=== PATIENT | female | born 2000 | race Caucasian/White ===

== ENCOUNTER 2023-02-20 18:30 | Emergency (ER) | payer SELFPAY ==
[~2023-02-20] VITALS: Ht 157.5 cm; Wt 73.8 kg
[2023-02-20 19:19] LABS: URINE WBC 0 /hpf (0-3)
[2023-02-20 19:32] LABS: URINE APPEARANCE CLEAR; URINE COLOR YELLOW
[2023-02-20 19:33] LABS: URINE BILIRUBIN NEGATIVE (NEGATIVE); URINE BLOOD NEGATIVE (NEGATIVE); URINE GLUCOSE NEGATIVE (NEGATIVE); URINE KETONE NEGATIVE (NEGATIVE); URINE LEUKOCYTE ESTERASE NEGATIVE (NEGATIVE); URINE MUCUS PRESENT (NOT PRESENT); URINE NITRATE NEGATIVE (NEGATIVE); URINE PROTEIN(semi-quant) TRACE (NEGATIVE); URINE UROBILINOGEN NORMAL (NORMAL)
[2023-02-20 19:36] LABS: BASO # 0.03 K/mm3 (0.02-0.10); EOS # 0.15 K/mm3 (0.04-0.40); EOS % 1.4 % (1.0-5.0); HEMATOCRIT 43.5 % (37.0-47.0); HEMOGLOBIN 14.6 g/dL (12.5-16.0); LYMPH# 1.92 K/mm3 (1.50-4.00); MEAN CELL VOLUME 94 fl (78-100); MEAN CORPUSCULAR HEMOGLOBIN 32 pg (27-31); MEAN CORPUSCULAR HGB CONC 34 g/dL (33-37); MEAN PLATELET VOLUME 10.8 fl (7.4-10.4); MONO # 0.71 K/mm3 (0.20-0.80); NEU # 7.65 K/mm3 (1.40-6.50); PLATELET COUNT 262 K/mm3 (130-400); RED BLOOD COUNT 4.62 M/mm3 (4.10-5.30); RED CELL DISTRIBUTION WIDTH 12.1 % (11.5-14.5); WHITE BLOOD COUNT 10.5 K/mm3 (4.8-10.8)
[2023-02-20 19:44] LABS: ALBUMIN 4.4 g/dL (3.5-5.0); POTASSIUM 3.2 mmol/L (3.5-5.1)
[2023-02-20 19:45] LABS: CALCIUM 9.2 mg/dL (8.3-10.5)
[2023-02-20 19:47] LABS: TOTAL PROTEIN 7.6 g/dL (6.4-8.3)
[2023-02-20 19:48] LABS: TOTAL BILIRUBIN 0.7 mg/dL (0.2-1.2)
[2023-02-20 20:24] VITALS: BP 127/77
== END 2023-02-20 20:25 | disposition home or self-care (01) ==
LOC: ED 18:30
PROVIDERS: Physician Assistant
DX: O20.9 Hemorrhage in early pregnancy, unspecified (principal); O99.331 Smoking (tobacco) complicating pregnancy, first trimester; F17.290 Nicotine dependence, other tobacco product, uncomplicated; Z3A.01 Less than 8 weeks gestation of pregnancy; Z28.310 Unvaccinated for COVID-19